=== PATIENT | male | born 2000 | race Caucasian/White ===

== ENCOUNTER 2024-03-22 11:58 | Outpatient (CLI) | payer OTHER ==
[2024-03-24 16:07] LABS: GIARDIA LAMBLIA AG EIA Negative (Negative)
== END 2024-03-22 11:59 | disposition home or self-care (01) ==
LOC: LAB.R 11:58
PROVIDERS: ATTEND Physician Assistant
DX: K52.9 Noninfective gastroenteritis and colitis, unspecified (principal)
CPT/HCPCS: 83993; 87045; 87046; 87177; 87209; 87329; 87427; 87493